=== PATIENT | female | born 1970 | race American Indian/Alaskan Native ===

== ENCOUNTER 2017-09-13 11:47 | Outpatient (CLI) | payer OTHER | END 2017-09-13 11:48 | disposition home or self-care (01) | LOC: PF 11:47 | PROVIDERS: ATTEND Internal Medicine | DX: R06.02 Shortness of breath (principal); M53.80 Other specified dorsopathies, site unspecified; M54.30 Sciatica, unspecified side; S06.0X9A Concussion with loss of consciousness of unspecified duration, initial encounter; X58.XXXA Exposure to other specified factors, initial encounter; Y93.89 Activity, other specified; Y92.89 Other specified places as the place of occurrence of the external cause; Y99.8 Other external cause status | CPT/HCPCS: 94010 ==